=== PATIENT | male | born 1955 | race Caucasian/White ===

== ENCOUNTER 2021-08-16 05:32 | Day surgery (SDC) | payer MEDICARE, BC ==
[~2021-08-16 05:32] MED LIST: Sodium Chloride 0.9% 10 ML Syringe FLUSH SCH
[2021-08-16] MEDS ORDERED: Midazolam 1 MG/ML 2 ML SDV IV ONE ×7 (05:33→06:38)
[2021-08-16] MEDS ORDERED: fentaNYL 100 MCG/2 ML SDV IV ONE ×3 (05:33→06:29)
[2021-08-16] MEDS ORDERED: Sodium Chloride 0.9% 10 ML Syringe FLUSH PRN (06:00)
[2021-08-16] MEDS ORDERED: Dextrose 5%-0.45% NaCl 1,000 ML IV SCH (06:00)
[2021-08-16] MEDS ORDERED: fentaNYL 100 MCG/2 ML SDV ONE (06:12)
[2021-08-16] MEDS ORDERED: Midazolam 1 MG/ML 2 ML SDV ONE (06:12)
[2021-08-16 11:19] VITALS: BP 106/67; PULSE 62
== END 2021-08-16 09:00 | disposition home or self-care (01) ==
LOC: DL.ENDO 05:32
PROVIDERS: ATTEND Internal Medicine Gastroenterology
DX: K62.5 Hemorrhage of anus and rectum (principal); K64.8 Other hemorrhoids; K50.90 Crohn's disease, unspecified, without complications; K52.9 Noninfective gastroenteritis and colitis, unspecified; E66.09 Other obesity due to excess calories; N18.9 Chronic kidney disease, unspecified; F10.20 Alcohol dependence, uncomplicated; E78.5 Hyperlipidemia, unspecified; R73.9 Hyperglycemia, unspecified; N20.0 Calculus of kidney; N52.9 Male erectile dysfunction, unspecified; Z90.5 Acquired absence of kidney; Z98.890 Other specified postprocedural states; Z85.72 Personal history of non-Hodgkin lymphomas
CPT/HCPCS: 88305; J2250; J3010; J7042